=== PATIENT | male | born 1945 | race Caucasian/White ===

== ENCOUNTER 2017-10-23 08:59 | Emergency (ER) | payer MEDICARE ==
[~2017-10-23] VITALS: Ht 170.2 cm; Wt 53.9 kg
[~2017-10-23 08:59] MED LIST: ACET325 PO; ASPI81TA82 PO; ATOR40TA PO; SOMA350T PO
[2017-10-23 09:03] VITALS: BP 156/70; PULSE 70; RESP 16; TEMP 97.9; O2SAT 95
[2017-10-23] MEDS ORDERED: ATOR20TA15 PO (09:14)
--- NOTE | 2017-10-23 09:29 | PD ---
HPI Chief Complaint: Complaint Time Seen by Provider: 09:07 Travel History International Travel<30 days: No Contact w/Intl Traveler<30days: No Traveled to known affect area: No History of Present Illness HPI This patient complains of inability to urinate. He has not urinated in 32 hours. The bladder is full and distended and causing him pain. He denies history of this ever before. His only prescription medicine is a statin for cholesterol problems. He denies prostate issues. No fevers. Symptom severity is moderate. No alleviating factors. No exacerbating factors. PFSH Past Medical History Arthritis: No Asthma: No Heart Rhythm Problems: No Cancer: No Cardiovascular Problems: Yes (PVD) High Cholesterol: Yes Chest Pain: No Congestive Heart Failure: No COPD: No Cerebrovascular Accident: No Diabetes: No Deep Vein Thrombosis: Yes Endocrine: No Gastrointestinal Disorders: No GERD: No Genitourinary: No Headaches: No Hepatitis: Yes (HEP C) Hiatal Hernia: No Hypertension: No Immune Disorder: No Kidney Stones: No Medical other: No (RLE DVT 2013) Musculoskeletal: Yes (CHRONIC LUMBAR PAIN) Neurologic: No Psychiatric: Yes (ANXIETY/DEPRESSION ) Reproductive: No Respiratory: No Immunizations Current: No Migraines: No Renal Failure: No Seizures: No Sleep Apnea: No Thyroid Disease: No Ulcer: No Past Surgical History Abdominal Surgery: Yes (ING. HERNIA REP) AICD: No Cardiac Surgery: No Ear Surgery: No Endocrine Surgery: No Eye Surgery: No Genitourinary Surgery: No Gynecologic Surgery: No Joint Replacement: No Neurologic Surgery: No Oral Surgery: No Pacemaker: No Thoracic Surgery: No Other Surgery: Yes Social History Alcohol Use: No Tobacco Use: No (former) Substance Use: No Allergies-Medications (Allergen,Severity, Reaction): Coded Allergies: No Known Allergies (Unverified Adverse Reaction, Unknown, 10/23/17) Reported Meds & Prescriptions Reported Meds & Active Scripts Active Reported Atorvastatin (Atorvastatin Calcium) 20 Mg Tab 20 Mg PO HS Review of Systems General / Constitutional: No: Fever Eyes: No: Visual changes HENT: No: Headaches Cardiovascular: No: Chest Pain or Discomfort Respiratory: No: Shortness of Breath Gastrointestinal: Positive: Abdominal Pain Genitourinary: Positive: Decreased Urinary Output, No: Dysuria Musculoskeletal: No: Pain Skin: No Rash Neurologic: No: Weakness Psychiatric: No: Depression Endocrine: No: Polydipsia Hematologic/Lymphatic: No: Easy Bruising Physical Exam Narrative GENERAL: Well-nourished, well-developed patient in no apparent distress. SKIN: Focused skin assessment reveals no rash and nodules. Skin is Warm and dry. HEAD: Atraumatic. Normocephalic. EYES: Pupils equal and round. No scleral icterus. No injection or drainage. ENT: No nasal bleeding or discharge. Mucous membranes pink and moist. NECK: Trachea midline. No JVD. CARDIOVASCULAR: Regular rate and rhythm. No murmur appreciated. RESPIRATORY: No accessory muscle use. Clear to auscultation. Breath sounds equal bilaterally. GASTROINTESTINAL: Abdomen soft, there is some suprapubic distention and tenderness. No rebound or guarding. Hepatic and splenic margins not palpable. MUSCULOSKELETAL: No obvious deformities. No clubbing. No cyanosis. No edema. NEUROLOGICAL: Awake and alert. No obvious cranial nerve deficits. Motor grossly within normal limits. Normal speech. PSYCHIATRIC: Appropriate mood and affect; insight and judgment normal. : Noncircumcised penis. Some bilateral inguinal lymphadenopathy. Data Data Last Documented VS Vital Signs Date Time Temp Pulse Resp B/P (MAP) Pulse Ox O2 Delivery O2 Flow Rate FiO2 10/23/17 09:03 97.9 70 16 156/70 (98) 95 Orders Orders Urinary Catheter Insert/Apply (10/23/17 09:23) [facility] Medical Decision Making Medical Screen Exam Complete: Yes Emergency Medical Condition: Yes Medical Record Reviewed: Yes Differential Diagnosis Urinary retention, BPH, urethral stricture Narrative Course I have reviewed the patient's electronic medical record. Sherman catheter placed for urinary retention. He drained out 1400 cc of urine. he feels better now. He is switched to a leg bag. Recommending urology follow-up for this He also complains of some congestion and cough. No hemoptysis or chest pain. Suggests some viral bronchitis. He should follow-up with his primary physician to have this reevaluated I do not see any indication for antibiotic therapy Diagnosis Primary Impression: Acute urinary retention Additional Impression: Acute viral bronchitis Additional Instructions: Follow-up with urology and primary care Med/Other Pt SpecificInfo: Other Disposition: 01 DISCHARGE HOME Condition: Stable Jam Cantu MD Oct 23, 2017 09:29
== END 2017-10-23 11:20 | disposition home or self-care (01) ==
LOC: PHED 08:59
DX: R33.9 Retention of urine, unspecified (principal); J20.8 Acute bronchitis due to other specified organisms; Z87.891 Personal history of nicotine dependence
CPT/HCPCS: 51702

== ENCOUNTER 2017-11-02 01:48 | Emergency (ER) | payer MEDICARE ==
[~2017-11-02] VITALS: Ht 170.2 cm; Wt 54.0 kg
[~2017-11-02 01:48] MED LIST changes: -ACET325 PO; -ASPI81TA82 PO; +ATOR20TA15 PO; -ATOR40TA PO; -SOMA350T PO
[2017-11-02 01:56] VITALS: BP 159/74; PULSE 84; RESP 18; TEMP 97.4; O2SAT 97
[2017-11-02] MEDS ORDERED: TAMS5CAP PO (04:36)
[2017-11-02] MEDS ORDERED: CIPR-9 PO (04:36)
[2017-11-02] MEDS ORDERED: SODIUM CHLORIDE 0.9% FLUSH 10 ML FLUSH IVF PRN (05:15)
[2017-11-02 05:30] LABS: BILIRUBIN, URINE NEG (NEG); BLOOD, URINE SMALL (NEG); GLUCOSE,URINE NEG (NEG); KETONE, URINE NEG (NEG); NITRITE,URINE NEG (NEG); PH, URINE 5.5 (5.0-8.5); URINE COLOR YELLOW (YELLW/STRAW); URINE LEUKOCYTE ESTERASE NEG (NEG)
[2017-11-02 05:36] LABS: RBC, URINE 15-19 /hpf (0-3); SQUAMOUS EPITHELIAL CELL URINE 0-5 /hpf (0-5); WBC, URINE 0-2 /hpf (0-5)
[2017-11-02 05:39] LABS: CALCIUM 8.4 MG/DL (8.5-10.1)
[2017-11-02 05:40] LABS: BICARBONATE 27.6 MEQ/L (21.0-32.0)
[2017-11-02 05:43] LABS: CREATININE 0.77 MG/DL (0.60-1.30)
[2017-11-02 06:20] VITALS: BP 127/63; PULSE 74; RESP 18; O2SAT 95
--- NOTE | 2017-11-02 06:37 | PD ---
HPI Chief Complaint: Complaint Time Seen by Provider: 05:03 Travel History International Travel<30 days: No Contact w/Intl Traveler<30days: No Traveled to known affect area: No History of Present Illness HPI 71-year-old male presents to the emergency department for complaint of urinary retention. Patient was recently seen for complaint of urinary retention with urinary catheter insertion and had urinary catheter removed by his physician this morning and reports has not had urine output subsequently. Patient is currently on oral antibiotic. Patient denies fever chills. Patient has marked discomfort secondary to inability to urinate. PFSH Past Medical History Narrative Medical Anxiety depression dyslipidemia peripheral vascular disease DVT iliac stent BPH ; no tobacco use; nursing notes reviewed Arthritis: No Asthma: No Anxiety: Yes Depression: Yes Heart Rhythm Problems: No Cancer: No Cardiovascular Problems: Yes (PVD) High Cholesterol: Yes Chest Pain: No Congestive Heart Failure: No COPD: No Cerebrovascular Accident: No Diabetes: No Diminished Hearing: No Deep Vein Thrombosis: Yes Endocrine: No GERD: No Genitourinary: Yes (ENLARGED PROSTATE) Headaches: No Hepatitis: Yes (HEP C) Hiatal Hernia: No Hypertension: No Immune Disorder: No Kidney Stones: No Musculoskeletal: Yes (CHRONIC LUMBAR PAIN) Psychiatric: Yes (ANXIETY/DEPRESSION ) Immunizations Current: No Migraines: No Renal Failure: No Seizures: No Sleep Apnea: No Thyroid Disease: No Ulcer: No Influenza Vaccination: No Past Surgical History Abdominal Surgery: Yes (ING. HERNIA REP) AICD: No Cardiac Surgery: No Ear Surgery: No Endocrine Surgery: No Eye Surgery: No Genitourinary Surgery: No Gynecologic Surgery: No Joint Replacement: No Neurologic Surgery: No Oral Surgery: Yes (ALL TEETH REMOVED) Pacemaker: No Thoracic Surgery: No Other Surgery: Yes (RIGHT ILLIAC STENT, CLOT REMOVED FROM R LOWER LEG) Social History Alcohol Use: No Tobacco Use: No (QUIT 2011) Substance Use: No Allergies-Medications (Allergen,Severity, Reaction): Coded Allergies: No Known Allergies (Unverified Adverse Reaction, Unknown, 10/23/17) Reported Meds & Prescriptions Reported Meds & Active Scripts Active Reported Cipro (Ciprofloxacin HCl) 500 Mg Tab 500 Mg PO BID Flomax (Tamsulosin HCl) 0.4 Mg Cap 0.4 Mg PO HS Atorvastatin (Atorvastatin Calcium) 20 Mg Tab 20 Mg PO HS Review of Systems Except as stated in HPI: all other systems reviewed are Neg Physical Exam Narrative GENERAL: Well-developed well-nourished male no acute distress no respiratory distress SKIN: Warm and dry. HEAD: Normocephalic. EYES: No scleral icterus. No injection or drainage. NECK: Supple, trachea midline. No JVD or lymphadenopathy. CARDIOVASCULAR: Regular rate and rhythm without murmurs, gallops, or rubs. RESPIRATORY: Breath sounds equal bilaterally. No accessory muscle use. GASTROINTESTINAL: Abdomen soft, non-tender, nondistended. : Circumcised male with urinary catheter in place Data Data Last Documented VS Vital Signs Date Time Temp Pulse Resp B/P (MAP) Pulse Ox O2 Delivery O2 Flow Rate FiO2 11/02/17 07:00 11/02/17 06:20 74 18 95 11/02/17 01:56 97.4 Orders Orders Basic Metabolic Panel (Bmp) (11/02/17 05:03) Urinalysis - C+S If Indicated (11/02/17 05:03) Cath For Specimen (11/02/17 05:03) Sodium Chloride 0.9% Flush (Ns Flush) (11/02/17 05:15) Urinary Catheter Insert/Apply (11/02/17 05:03) Cath, Leg Strap Ea (11/02/17 06:35) Bag, Leg 32oz Sterile Large Ea (11/02/17 06:35) Ed Discharge Order (11/02/17 06:35) Labs Laboratory Tests Test 11/02/17 04:00 11/02/17 05:15 Urine Color YELLOW Urine Turbidity CLEAR Urine pH 5.5 Urine Specific [place] 1.025 Urine Protein NEG mg/dL Urine Glucose (UA) NEG mg/dL Urine Ketones NEG mg/dL Urine Occult Blood SMALL Urine Nitrite NEG Urine Bilirubin NEG Urine Urobilinogen 0.2 MG/DL Urine Leukocyte Esterase NEG Urine RBC 15-19 /hpf Urine WBC 0-2 /hpf Urine Squamous Epithelial Cells 0-5 /hpf Urine Bacteria NONE /hpf Microscopic Urinalysis Comment CATH-CULT NOT IND Blood Urea Nitrogen 15 MG/DL Creatinine 0.77 MG/DL Random Glucose 137 MG/DL Calcium Level 8.4 MG/DL Sodium Level 138 MEQ/L Potassium Level 3.9 MEQ/L Chloride Level 105 MEQ/L Carbon Dioxide Level 27.6 MEQ/L Anion Gap 5 MEQ/L Estimat Glomerular Filtration Rate 100 ML/MIN MDM Medical Decision Making Medical Screen Exam Complete: Yes Emergency Medical Condition: Yes Medical Record Reviewed: Yes Differential Diagnosis Urinary retention urethral stricture BPH UTI renal insufficiency Narrative Course Patient presents with history of urinary retention with recent urinary catheter removal; catheter placed for bladder decompression prior to initial evaluation; bladder is decompressed and patient is much more comfortable with 1 L of clear urine output. UA sent along with bmp UA blood few rbc's cx not indicated; bun and creatinine wnl Patient is stable for discharge and follow-up with primary care provider and his urologist Diagnosis Primary Impression: Urinary retention Referrals: Urologist call for appointment Patient Instructions: General Instructions Additional Instructions: Increase fluid hydration Follow-up with your urologist Return to the emergency department for any concerns or change in condition Med/Other Pt SpecificInfo: No Change to Meds Disposition: 01 DISCHARGE HOME Condition: Stable Carla Wilkerson MD Nov 02, 2017 06:37
== END 2017-11-02 07:04 | disposition home or self-care (01) ==
LOC: PHED 01:48
DX: N40.1 Benign prostatic hyperplasia with lower urinary tract symptoms (principal); R33.8 Other retention of urine; E78.00 Pure hypercholesterolemia, unspecified; Z87.891 Personal history of nicotine dependence
CPT/HCPCS: 51702; 80048; 81001